=== PATIENT | male | born 1950 | race Two or more races ===

== ENCOUNTER 2018-12-31 15:39 | Emergency (ER) | payer MEDICARE, MEDICAID ==
[~2018-12-31] VITALS: Ht 170.2 cm; Wt 53.1 kg
--- NOTE | 2018-12-31 16:52 | NUR ---
jernigan cath removed per md order. cath tip intact. no complications noted. patient tolerated well.
--- NOTE | 2018-12-31 17:28 | NUR ---
Patient discharged to home in stable condition. Written and verbal after care instructions given. Patient verbalizes understanding of instruction. per patient urinated.
[2018-12-31 17:29] VITALS: BP 127/67
== END 2018-12-31 17:30 | disposition home or self-care (01) ==
LOC: ER 15:43
DX: Z46.6 Encounter for fitting and adjustment of urinary device (principal); G82.20 Paraplegia, unspecified; Z98.890 Other specified postprocedural states